=== PATIENT | female | born 1955 | race Caucasian/White ===

== ENCOUNTER → 2018-04-21 20:01 | Outpatient (CLI) | payer OTHER, SELFPAY | PROVIDERS: Family Provider Internal Medicine; PCP Internal Medicine; Visit Provider Family Medicine | DX: G47.33 Obstructive sleep apnea (adult) (pediatric) (principal) | CPT/HCPCS: 95810 ==

== ENCOUNTER 2021-04-12 19:28 | Emergency (ER) | payer OTHER, MEDICARE, BC, SELFPAY ==
[2021-04-12 19:29] VITALS: BP 163/62; PULSE 88; RESP 16; TEMP 35.7; O2SAT 99; BMI 35.4
--- NOTE | 2021-04-12 19:56 | EDS_ITS ---
HPI History of Present Illness HPI Narrative: Patient presents with laceration to her right hand that occurred today. Patient states she was attempting to catch a resident at a residential from falling when she hit her hand on the corner of a wall. Patient states her last tetanus was within the last 10 years. Patient describes her pain as dull. Patient states her pain is worse with any movement. Patient admits to some tingling in her fingers but states this has improved since the injury. Patient denies any other injuries. Chief Complaint: Laceration Informant: patient Occured/Mechanism Mechanism/Context: Yes direct blow Onset/Context/Timing Onset: Today Context: Sudden Onset Timing: Continuous Quality of Pain: Dull Location: Right hand Worsened by: Movement Relieved by: Nothing Associated Symptoms Associated Symptoms: Positive for Parasthesia; Negative for Weakness and Loss of Funtion Narrative Tetanus Immunization: 5-10 years [facility] Medical History Carpal tunnel syndrome High cholesterol Hypertension Home Medications amlodipine 5 mg PO DAILY 04/12/21 [History Last Taken Unknown] atorvastatin 80 mg PO DAILY 04/12/21 [History Last Taken Unknown] ezetimibe 10 mg PO DAILY 04/12/21 [History Last Taken Unknown] hydrochlorothiazide 25 mg PO DAILY 04/12/21 [History Last Taken Unknown] lisinopril 40 mg PO DAILY 04/12/21 [History Last Taken Unknown] metformin 1,000 mg PO BID 04/12/21 [History Last Taken Unknown] Allergy/AdvReac Type Severity Reaction Status Date / Time adhesive tape Allergy Rash Verified 04/12/21 19:32 tetracycline Allergy Rash Verified 04/12/21 19:32 COLSTID Allergy Upset Uncoded 04/12/21 19:32 Stomach Social History Smoking Status: Former smoker ROS ROS ED Constitutional Constitutional ED: Denies chills or fever(s) Eyes Eyes: Denies blurry vision or change in vision ENT ENT ED: Denies rhinorrhea or sore throat Cardiovascular Cardiovascular: Denies chest pain or palpitations Respiratory/Chest Respiratory/Chest: Denies cough or dyspnea Gastrointestinal Gastrointestinal: Denies nausea or vomiting Genitourinary Genitourinary ED: Denies dysuria or hematuria Musculoskeletal Musculoskeletal: Denies back pain or neck pain Integumentary Denies abscess or rash Neurologic Neurologic: Denies headache(s) or weakness Allergic/Immunologic Allergic/Immunologic ED: Denies mouth swelling or urticaria EXAM Physical Exam Const Vital Signs: 04/12/21 19:29 Temperature 96.3 F L Temperature Source Temporal Pulse Rate 88 Respiratory Rate 16 Blood Pressure 163/62 H Blood Pressure Mean 95 Pulse Ox 99 Oxygen Delivery Method Room Air Positive well nourished and well developed General Appearance ED: well developed HEENT normocephalic and atraumatic Neck full ROM Extremity Extremity Narrative: There is mild tenderness over the dorsum of the right hand. There is no deformity. There is full range of motion. Neuro oriented x3, CN's II-XII intact bilaterally, moves all extremities, no focal motor deficits and no sensory deficits noted Sensorium / Orientation: alert Psych mental status grossly normal Skin Skin Narrative: There is a 4 cm full-thickness linear laceration across the dorsum of the right hand. There is moderate gapping of the wound margins. There is no active bleeding noted. There are no foreign bodies visualized. There is no bony crepitance or step-off. MDM MDM MDM Narrative Medical decision making narrative: The wound was cleaned and irrigated with copious amounts of normal saline. The wound was anesthetized with [1% plain lidocaine] locally. The wound was closed with 3 horizontal mattress #4-0 [nylon] sutures under sterile technique. Patient tolerated the procedure well. Bacitracin dressing was applied. Patient was instructed to keep the wound clean and dry. Patient was instructed to follow-up with her primary care physician in 7 days for wound recheck and suture removal. Patient understood and was agreeable with the plan. All questions were answered. Procedures Lacerations Right hand: Length: 4 cm Depth: Sub Q Shape: Linear Prep: Sterile Conditions and Chlorhexadine Laceration repair: Irrigated, Lidocaine, Local, Skin sutures and Wound explored Irrigated (ml): 60 Number of Sutures/Solitario: 3 Suture Information: Ethilon, Mattress and 4-0 Discharge Plan Triage Chief Complaint: Laceration ED Provider: Gorge Lyons Dx/Rx/DC Orders Clinical Impression: Laceration of hand, right Instructions: ED Laceration, Hand: All Closures Prescriptions: No Action atorvastatin 80 mg tablet 80 mg PO DAILY RF: 0 amlodipine 5 mg tablet 5 mg PO DAILY RF: 0 hydrochlorothiazide 25 mg tablet 25 mg PO DAILY RF: 0 lisinopril 40 mg tablet 40 mg PO DAILY RF: 0 metformin 500 mg tablet extended release 24 hr 1,000 mg PO BID RF: 0 ezetimibe 10 mg tablet 10 mg PO DAILY RF: 0 Primary Care Provider: Angel Pena Referrals: Angel Pena MD [Primary Care Provider] - 7 Days for suture removal Disposition Disposition: Home, Self Care
[2021-04-12] MEDS: Lidocaine 1% (20 ml mdv) 20 ML Vial INFILT (20:52)
[2021-04-12 20:59] VITALS: PULSE 66; RESP 18; O2SAT 95
== END 2021-04-12 21:06 | disposition home or self-care (01) ==
PROVIDERS: Emergency Provider Emergency Medicine; PCP Family Medicine
DX: S61.411A Laceration without foreign body of right hand, initial encounter (principal); W22.01XA Walked into wall, initial encounter; Y93.F9 Activity, other caregiving; Y92.199 Unspecified place in other specified residential institution as the place of occurrence of the external cause; Y99.0 Civilian activity done for income or pay; Z79.84 Long term (current) use of oral hypoglycemic drugs; Z79.899 Other long term (current) drug therapy; Z87.891 Personal history of nicotine dependence
CPT/HCPCS: 12002; 99284